=== PATIENT | female | born 1980 | race Hispanic/Latino ===

== ENCOUNTER 2024-08-18 10:00 | Emergency (ER) | payer OTHER ==
[~2024-08-18] VITALS: Ht 160 cm; Wt 98.4 kg
[2024-08-18 12:19] VITALS: PULSE 70; RESP 16; TEMP 98.4; O2SAT 100
[2024-08-18] MEDS ORDERED: PATADAY2.5 ML OP (13:08)
[2024-08-18] MEDS ORDERED: OFLOXACIN5 ML OP (13:09)
== END 2024-08-18 14:56 | disposition home or self-care (01) ==
LOC: ER 13:10
DX: H10.9 Unspecified conjunctivitis (principal); I10 Essential (primary) hypertension
CPT/HCPCS: 99282